=== PATIENT | female | born 1955 | race Caucasian/White ===

== ENCOUNTER → 2020-01-14 | Outpatient (CLI) | payer MEDICARE, OTHER | LOC: MC.RAD 13:36 | DX: Z12.31 Encounter for screening mammogram for malignant neoplasm of breast (principal) ==

== ENCOUNTER 2021-04-01 06:56 | Day surgery (SDC) | payer MEDICARE, OTHER ==
[~2021-04-01] VITALS: Ht 167.6 cm; Wt 78.4 kg
[2021-04-01] VITALS (7 sets, daily range): BP systolic 88–120; BP diastolic 60–71; PULSE 84–93; TEMP 98.1
[2021-04-01] MEDS ORDERED: FOLIC ACID 11 MG/TA1 PO (08:03)
[2021-04-01] MEDS ORDERED: HALCION0.25 MG PO (08:03)
[2021-04-01] MEDS ORDERED: EFFEXOR-XR150 MG PO (08:03)
[2021-04-01] MEDS ORDERED: NORVASC 10MG10 MG PO (08:04)
[2021-04-01] MEDS ORDERED: LEVOXYL0.075 MG PO (08:04)
[2021-04-01] MEDS ORDERED: TRELEGY ELLIPT1 EACH IH (08:05)
[2021-04-01] MEDS ORDERED: BUSPAR DIVIDOSE15 MG PO (08:05)
[2021-04-01] MEDS ORDERED: OSCAL 500 TAB500 MG PO (08:08)
[2021-04-01] MEDS ORDERED: VITAMIN D31000 I1 PO (08:09)
[2021-04-01] MEDS ORDERED: VITAMINC1000TA PO (08:09)
[2021-04-01] MEDS ORDERED: VITAMIN E 400 U4001 PO (08:10)
[2021-04-01] MEDS ORDERED: MAGNESIUM OXID500 MG PO (08:10)
[2021-04-01] MEDS ORDERED: NEURONTIN300 MG/CAP PO (08:11)
[2021-04-01] MEDS ORDERED: MELATONIN5 M1 PO (08:11)
[2021-04-01] MEDS ORDERED: BACTRIM DS 8001 TAB PO (08:11)
[2021-04-01] MEDS ORDERED: PRIL40 PO (08:12)
[2021-04-01] MEDS ORDERED: PROBIOTIC BLEN1 EACH PO (08:12)
--- NOTE | 2021-04-01 09:05 | NUR ---
Pt to [facility] [facility] via cart from ENDO. Pt awake and alert. O2 on at 3 liters via oxymask. Coffee and water given per pt request. Pt denies pain or shortness of breath. Will continue to monitor. Call light within reach.
--- NOTE | 2021-04-01 09:20 | NUR ---
O2 decreased to 1 liter via oxymask. Pt continues to rest. Tolerating PO fluids without difficulties. Call light within reach.
--- NOTE | 2021-04-01 09:35 | NUR ---
O2 discontinued. Pt instructed on IS use to help with O2 sats at home. Pt voices "I've used these in the past." Pt demonstrates correct use at this time. Instructed pt to use 10x every 1-2 hours while awake. Also instructed pt to wear home O2 today if napping or relaxing. Pt voices understanding.
--- NOTE | 2021-04-01 09:50 | NUR ---
Pt denies needs. Call light within reach.
--- NOTE | 2021-04-01 10:05 | NUR ---
Discharge instructions reviewed. Pt voices understanding. IV site discontinued with all parts intact. Pt up to dress. Call light within reach.
--- NOTE | 2021-04-01 10:35 | NUR ---
Pt escorted to private car via wheel chair. Pt accompanied home by her .
== END 2021-04-01 10:35 | disposition home or self-care (01) ==
LOC: SDCO 06:56
DX: C34.92 Malignant neoplasm of unspecified part of left bronchus or lung (principal); C34.91 Malignant neoplasm of unspecified part of right bronchus or lung; A43.0 Pulmonary nocardiosis; J44.9 Chronic obstructive pulmonary disease, unspecified; F17.210 Nicotine dependence, cigarettes, uncomplicated; Z85.3 Personal history of malignant neoplasm of breast; Z99.81 Dependence on supplemental oxygen; Z79.899 Other long term (current) drug therapy; Z79.2 Long term (current) use of antibiotics
CPT/HCPCS: J2704; J7120

== ENCOUNTER → 2021-04-20 | Outpatient (CLI) | payer MEDICARE, OTHER ==
[~2021-04-20] MED LIST: BACTRIM DS 8001 TAB PO; BUSPAR DIVIDOSE15 MG PO; EFFEXOR-XR150 MG PO; FOLIC ACID 11 MG/TA1 PO; HALCION0.25 MG PO; LEVOXYL0.075 MG PO; MAGNESIUM OXID500 MG PO; MELATONIN5 M1 PO; NEURONTIN300 MG/CAP PO; NORVASC 10MG10 MG PO; OSCAL 500 TAB500 MG PO; PRIL40 PO; PROBIOTIC BLEN1 EACH PO; TRELEGY ELLIPT1 EACH IH; VITAMIN D31000 I1 PO; VITAMIN E 400 U4001 PO; VITAMINC1000TA PO
== END ==
LOC: MC.RAD 03-09 11:30
DX: Z12.31 Encounter for screening mammogram for malignant neoplasm of breast (principal); Z90.11 Acquired absence of right breast and nipple

== ENCOUNTER 2021-05-19 08:14 | Day surgery (SDC) | payer MEDICARE, OTHER ==
[~2021-05-19] VITALS: Ht 167.6 cm; Wt 77.2 kg
[2021-05-19] MEDS ORDERED: TRELEGY ELLIPT1 EACH IH (08:30)
[2021-05-19] MEDS ORDERED: BACTRIM DS 8001 TAB PO (08:32)
[2021-05-19] MEDS ORDERED: KEYTRUDA25 MG/ML IV (08:38)
[2021-05-19 08:55] VITALS: BP 102/72; PULSE 95; TEMP 97.6
[2021-05-19 10:25] VITALS: BP 98/61; PULSE 87; TEMP 97.4
[2021-05-19 10:40] VITALS: BP 100/63; PULSE 90
[2021-05-19 10:55] VITALS: BP 98/65; PULSE 89
--- NOTE | 2021-05-19 11:30 | NUR ---
1025 PT RETURNED TO BAY 4 VIA CART, TRANSFERED TO CHAIR WITH RN ASSIST. ALERT AND ORIENTED. MONITORS ATTACHED AND INTERVALS AND ALARMS SET. PT REPORTS HX COPD AND HOME BASELINE O2 LEVELS 88% -92%. PT RECIEVED O2 IN PROCEDURE ROOM PER ENDO RN. PT DENIES PAIN OR NAUSEA. COFFEE AND TOAST PROVIDED. CALL LIGHT IN REACH, AT BEDSIDE. 1040 VSS. PT TOLERATING FOOD AND DRINK WELL. 1055 REVIEWED DISCHARGE INSTRUCTIONS AND EDUCATION MATERIAL, ANSWERED ALL QUESTIONS. PT ALLOWED TO DRESS. IV D/C WITHOUT COMPLICATION. 1130 PT TRANSFERED TO PERSONAL VEHICLE VIA WHEELCHAIR TO BE DRIVEN HOME BY .
== END 2021-05-19 11:30 | disposition home or self-care (01) ==
LOC: SDCO 08:14
DX: R19.5 Other fecal abnormalities (principal); Z87.891 Personal history of nicotine dependence; Z85.118 Personal history of other malignant neoplasm of bronchus and lung
CPT/HCPCS: J2704; J7120

== ENCOUNTER 2021-08-04 07:19 | Day surgery (SDC) | payer MEDICARE, OTHER ==
[~2021-08-04] VITALS: Ht 167.6 cm; Wt 76.6 kg
[~2021-08-04 07:19] MED LIST changes: +KEYTRUDA25 MG/ML IV
[2021-08-04 08:01] VITALS: BP 98/69; PULSE 87; TEMP 97.4
[2021-08-04 09:50] VITALS: BP 107/68; PULSE 88; TEMP 97.4
--- NOTE | 2021-08-04 09:50 | NUR ---
PATIENT ARRIVES BACK TO ROOM 3 VIA CART. ASSIST X 2 TO THE CHAIR. VITAL SIGNS ARE STABLE, SHE DOES WEAR 2 LITERS OF 02 AT NIGHT SO HER SATS ARE A LITTLE LOW. BEFORE SURGERY SHE WAS 94% ON ROOM AIR AND IS NOW 93% ON ROOM AIR. SHE DENIES ANY NAUSEA OR PAIN. SHE REQUESTS PEANUT BUTTER TOAST, WATER, AND COFFEE. AT BEDSIDE. WILL CONTINUE TO MONITOR.
[2021-08-04 10:05] VITALS: BP 127/72; PULSE 92
--- NOTE | 2021-08-04 10:05 | NUR ---
PATIENT IS DOING WELL, DENIES ANY NAUSEA AFTER EATING TOAST. HER O2 SAT DROPPED TO 90 BRIEFLY, BUT SHE TOOK A DEEP BREATH AND IT CAME BACK UP TO 94%. THE DOCTOR JUST CAME IN AND SPOKE WITH HER ABOUT THE PROCEDURE. WILL CONTINUE TO MONITOR.
[2021-08-04 10:20] VITALS: BP 120/75; PULSE 89
--- NOTE | 2021-08-04 10:20 | NUR ---
PATIENT IS DOING WELL AND IS READY FOR DISCHARGE. VITAL SIGNS ARE STABLE, SHE REPORTS NO PAIN OR NAUSEA. AT BEDSIDE. IV REMOVED, SHE IS GETTING DRESSED AND WILL BE DISCHARGED SHORTLY.
== END 2021-08-04 10:38 | disposition home or self-care (01) ==
LOC: SDCO 07:19
DX: D12.0 Benign neoplasm of cecum (principal); D12.3 Benign neoplasm of transverse colon; D12.4 Benign neoplasm of descending colon; K57.30 Diverticulosis of large intestine without perforation or abscess without bleeding; Z87.891 Personal history of nicotine dependence
CPT/HCPCS: J2704; J7120

== ENCOUNTER → 2021-08-23 | Outpatient (CLI) | payer MEDICARE, OTHER | LOC: COL.RAD 09:10 | DX: C34.12 Malignant neoplasm of upper lobe, left bronchus or lung (principal); R91.8 Other nonspecific abnormal finding of lung field; J43.9 Emphysema, unspecified | CPT/HCPCS: Q9967 ==

== ENCOUNTER → 2021-11-24 | Outpatient (CLI) | payer MEDICARE, OTHER | LOC: COL.RAD 08:05 | DX: C34.90 Malignant neoplasm of unspecified part of unspecified bronchus or lung (principal); J98.11 Atelectasis; K44.9 Diaphragmatic hernia without obstruction or gangrene; J98.4 Other disorders of lung; Z90.11 Acquired absence of right breast and nipple | CPT/HCPCS: Q9967 ==